=== PATIENT | female | born 1955 | race Caucasian/White ===

== ENCOUNTER 2018-01-20 11:28 | Emergency (ER) | payer BC, OTHER ==
[~2018-01-20] VITALS: Ht 160 cm; Wt 68.9 kg
[~2018-01-20 11:28] MED LIST: ALBUAER2 INH; ANAS1TAB59 PO; FEXO1TAB49 PO; FISH OIL GUMMY PO; FLUT0.0529 NAE; FLVHFA110 INH; PSEU30TA20 PO
[2018-01-20 11:37] VITALS: TEMP 36.4; Ht 160 cm; Wt 68.9 kg
[2018-01-20] MEDS ORDERED: OMEG10007 PO (11:59)
[2018-01-20] MEDS ORDERED: CYAN100020 PO (11:59)
[2018-01-20] MEDS ORDERED: CALC600T9 PO (11:59)
[2018-01-20] MEDS ORDERED: SODIUM CHLORIDE 0.9% 1000ML 1,000 ML IV STA (12:02)
[2018-01-20] MEDS ORDERED: KETOROLAC TROMETHAMINE 30 MG/ML VIAL ONE (12:37)
[2018-01-20 12:45] LABS: BASO % 0.4 %; BASO ABS # 0.03 K/uL (0-0.2); EOS % 0.8 %; EOS ABS # 0.06 K/uL (0-0.5); HEMATOCRIT 39.3 % (37-47); HEMOGLOBIN 12.9 g/dL (12.0-16.0); IG# 0.01 K/uL (0.00-0.02); LYMPH % 22.2 %; LYMPH ABS # 1.74 K/uL (1.2-3.4); MEAN CELL VOLUME 89.7 fL (80-100); MEAN CORPUSCULAR HEMOGLOBIN 29.5 pg (25-34); MEAN CORPUSCULAR HGB CONC 32.8 g/dl (32-36); MEAN PLATELET VOLUME 9.9 fL (7.4-10.4); MONO % 4.6 %; MONO ABS # 0.36 K/uL (0.11-0.59); NEUT % 71.9 %; NEUT ABS # 5.64 K/uL (1.4-6.5); PLATELET COUNT 314 K/uL (130-400); RED CELL DISTRIBUTION WIDTH CV 13.3 % (11.5-14.5); RED CELL DISTRIBUTION WIDTH SD 43.6 fL (36.4-46.3); WHITE BLOOD COUNT 7.84 K/uL (4.8-10.8)
[2018-01-20 13:05] LABS: CREATININE 0.75 mg/dl (0.60-1.20)
[2018-01-20 13:06] LABS: ALBUMIN 3.8 gm/dl (3.4-5.0); CALCIUM 9.5 mg/dl (8.5-10.1); TOTAL PROTEIN 7.6 gm/dl (6.4-8.2)
--- NOTE | 2018-01-20 13:20 | DIAGNOSTIC IMAGING REPORT ---
CT SCAN OF THE ABDOMEN AND PELVIS WITHOUT CONTRAST CLINICAL HISTORY: Left mid abdominal pain. History of some diarrhea. COMPARISON STUDY: No previous studies for comparison. TECHNIQUE: CT scan of the abdomen and pelvis was performed from the lung bases to the proximal femurs. Images are reviewed in the axial, sagittal, and coronal planes. IV contrast was not administered for this examination. A dose lowering technique was utilized adhering to the principles of ALARA. CT DOSE: 788.14 mGycm FINDINGS: Lower chest: The heart is normal in size and configuration, without pericardial effusion. The lung bases and pleural spaces are clear. Liver: The unenhanced liver is normal in size, contour, and attenuation. There is no intrahepatic biliary ductal dilatation. Gallbladder: Unremarkable. Spleen: Normal in size and attenuation. Pancreas: Unremarkable. Adrenal glands: Unremarkable. Kidneys: There is a punctate nonobstructing right renal calculus. There is mild left-sided hydronephrosis and hydroureter. There is a 3 mm distal left ureteral calculus. Bowel: There are no transition zones indicate bowel obstruction. There is no acute diverticulitis. There are no findings to indicate acute appendicitis. Peritoneum: There is no intraperitoneal free air or abdominal ascites. Vasculature: The abdominal aorta is normal in course and caliber. Adenopathy: None. Pelvic viscera: There is a calcified uterine fibroid. Skeletal structures: No destructive osseous lesions are seen. IMPRESSION: 1. Punctate nonobstructing right renal calculus 2. 3 mm distal left ureteral calculus with secondary mild obstructive changes 3. No evidence of bowel obstruction. No evidence of free air 4. No evidence of acute appendicitis. No evidence of acute diverticulitis Electronically signed by: Carlos Deleon M.D. 01/20/2018 1:18 PM Dictated Date/Time: 01/20/2018 1:13 PM
[2018-01-20 13:54] VITALS: BP 136/89; PULSE 70; O2SAT 100
[2018-01-20] MEDS ORDERED: OXYC-737 PO (13:57)
--- NOTE | 2018-01-20 17:21 | EMERGENCY ROOM VISIT NOTE ---
History Report prepared by Yelitza: Ana Cristina Kemp Under the Supervision of: Dr. Amando Gee D.O. First contact with patient: 11:48 Chief Complaint: ABDOMINAL PAIN Stated Complaint: LEFT LOWER QUADRANT PAIN Nursing Triage Summary: triage note; pt reports left lower abd pain since this am. pt reports some diarrhea. History of Present Illness The patient is a 62 year old female who presents to the Emergency Room with complaints of severe left abdominal pain beginning this morning. She rates her pain at a 3/10 currently but states that it was at a 6/7 out of 10 when she came to the ED. She reports that she was bent over in pain a half hour prior to arrival. The patient states that her pain began on her way to work. She states that she was able to go to the bathroom a little but reports that it did not alleviate her symptoms. She reports that her bowel movement today was loose and states that she is normally regular. The patient states that standing alleviates her pain and that bending over and sitting exacerbates her pain. She denies having any nausea, vomiting, or urinary symptoms. The patient states that she recently ate blueberries and that she normally does not eat them. She denies a history of diverticulitis, diverticulosis, or kidney stones. The patient also denies a history of an appendectomy or a cholecystectomy. Source of History: patient Onset: this morning Position: abdomen (left) Symptom Intensity: severe Quality: other (pain) Modifying Factors (Worsening): other (bending over, sitting ) Modifying Factors (Relieving): other (standing) Associated Symptoms: No nausea, No vomiting, No urinary symptoms Review of Systems See HPI for pertinent positives & negatives. A total of 10 systems reviewed and were otherwise negative. Past Medical & Surgical Medical Problems: (1) No active medical problems Family History Patient reports no known family medical history. Social History Smoking Status: Never Smoker Marital Status: Housing Status: lives with significant other Current/Historical Medications Scheduled Anastrozole (Arimidex), 1 MG PO DAILY Calcium Carbonate-Vitamin D (Calcium + D), 1 TAB PO DAILY Cyanocobalamin (Vitamin B12), 1,000 MCG PO DAILY Fish Oil ([place]-3), 1 CAP PO DAILY Scheduled PRN Oxycodone Immediate Rel Tab (Roxicodone Ir), 5 MG PO Q4H PRN for Severe Pain Allergies Coded Allergies: Iodine (Verified Allergy, Mild, Sneezing, 01/20/18) Povidone Iodine (Verified Allergy, Mild, Urticaria, 01/20/18) Physical Exam Vital Signs Date Time Temp Pulse Resp B/P (MAP) Pulse Ox O2 Delivery O2 Flow Rate FiO2 01/20/18 13:54 70 16 136/89 100 Room Air 01/20/18 11:37 36.4 75 18 166/83 99 Room Air Physical Exam GENERAL: Standing in the room, alert, well appearing, well nourished, no distress, non-toxic EYE EXAM: normal conjunctiva. OROPHARYNX: no exudate, no erythema, lips, buccal mucosa, and tongue normal and mucous membranes are moist NECK: supple, no nuchal rigidity, no adenopathy, non-tender LUNGS: Clear to auscultation. Normal chest wall mechanics HEART: no murmurs, S1 normal and S2 normal ABDOMEN: abdomen soft, tenderness to palpation in the left mid abdomen, normo- active bowel sounds, no masses, no rebound or guarding. BACK: Back is symmetrical on inspection and there is no deformity, no midline tenderness, no CVA tenderness. SKIN: no rashes and no bruising UPPER EXTREMITIES: upper extremities are grossly normal. LOWER EXTREMITIES: No pitting edema. NEURO EXAM: Normal sensorium, cranial nerves II-XII grossly intact, normal speech, no gross weakness of arms, no gross weakness of legs. Medical Decision & Procedures ER Provider Diagnostic Interpretation: Radiology results as stated below per my review and the radiologist's interpretation: CT SCAN OF THE ABDOMEN AND PELVIS WITHOUT CONTRAST CLINICAL HISTORY: Left mid abdominal pain. History of some diarrhea. COMPARISON STUDY: No previous studies for comparison. TECHNIQUE: CT scan of the abdomen and pelvis was performed from the lung bases to the proximal femurs. Images are reviewed in the axial, sagittal, and coronal planes. IV contrast was not administered for this examination. A dose lowering technique was utilized adhering to the principles of ALARA. CT DOSE: 788.14 mGycm FINDINGS: Lower chest: The heart is normal in size and configuration, without pericardial effusion. The lung bases and pleural spaces are clear. Liver: The unenhanced liver is normal in size, contour, and attenuation. There is no intrahepatic biliary ductal dilatation. Gallbladder: Unremarkable. Spleen: Normal in size and attenuation. Pancreas: Unremarkable. Adrenal glands: Unremarkable. Kidneys: There is a punctate nonobstructing right renal calculus. There is mild left-sided hydronephrosis and hydroureter. There is a 3 mm distal left ureteral calculus. Bowel: There are no transition zones indicate bowel obstruction. There is no acute diverticulitis. There are no findings to indicate acute appendicitis. Peritoneum: There is no intraperitoneal free air or abdominal ascites. Vasculature: The abdominal aorta is normal in course and caliber. Adenopathy: None. Pelvic viscera: There is a calcified uterine fibroid. Skeletal structures: No destructive osseous lesions are seen. IMPRESSION: 1. Punctate nonobstructing right renal calculus 2. 3 mm distal left ureteral calculus with secondary mild obstructive changes 3. No evidence of bowel obstruction. No evidence of free air 4. No evidence of acute appendicitis. No evidence of acute diverticulitis Electronically signed by: Carlos Deleon M.D. 01/20/2018 1:18 PM Dictated Date/Time: 01/20/2018 1:13 PM Laboratory Results 01/20/18 12:35 Red Blood Count 4.38, Mean Corpuscular Volume 89.7, Mean Corpuscular Hemoglobin 29.5, Mean Corpuscular Hemoglobin Concent 32.8, Mean Platelet Volume 9.9, Neutrophils (%) (Auto) 71.9, Lymphocytes (%) (Auto) 22.2, Monocytes (%) (Auto) 4.6, Eosinophils (%) (Auto) 0.8, Basophils (%) (Auto) 0.4, Neutrophils # (Auto) 5.64, Lymphocytes # (Auto) 1.74, Monocytes # (Auto) 0.36, Eosinophils # (Auto) 0.06, Basophils # (Auto) 0.03 01/20/18 12:35 Test 01/20/18 12:05 01/20/18 12:35 Urine Color YELLOW Urine Appearance TURBID (CLEAR) Urine pH >= 9.0 (4.5-7.5) Urine Specific [place] 1.018 (1.000-1.030) Urine Protein NEG (NEG) Urine Glucose (UA) NEG (NEG) Urine Ketones NEG (NEG) Urine Occult Blood 3+ (NEG) Urine Nitrite NEG (NEG) Urine Bilirubin NEG (NEG) Urine Urobilinogen NEG (NEG) Urine Leukocyte Esterase NEG (NEG) Urine WBC (Auto) 1-5 /hpf (0-5) Urine RBC (Auto) >30 /hpf (0-4) Urine Hyaline Casts (Auto) 0 /lpf (0-5) Urine Epithelial Cells (Auto) 5-10 /lpf (0-5) Urine Bacteria (Auto) NEG (NEG) Urine Test NEG (NEG) White Blood Count 7.84 K/uL (4.8-10.8) Red Blood Count 4.38 M/uL (4.2-5.4) Hemoglobin 12.9 g/dL (12.0-16.0) Hematocrit 39.3 % (37-47) Mean Corpuscular Volume 89.7 fL (80-100) Mean Corpuscular Hemoglobin 29.5 pg (25-34) Mean Corpuscular Hemoglobin Concent 32.8 g/dl (32-36) Platelet Count 314 K/uL (130-400) Mean Platelet Volume 9.9 fL (7.4-10.4) Neutrophils (%) (Auto) 71.9 % Lymphocytes (%) (Auto) 22.2 % Monocytes (%) (Auto) 4.6 % Eosinophils (%) (Auto) 0.8 % Basophils (%) (Auto) 0.4 % Neutrophils # (Auto) 5.64 K/uL (1.4-6.5) Lymphocytes # (Auto) 1.74 K/uL (1.2-3.4) Monocytes # (Auto) 0.36 K/uL (0.11-0.59) Eosinophils # (Auto) 0.06 K/uL (0-0.5) Basophils # (Auto) 0.03 K/uL (0-0.2) RDW Standard Deviation 43.6 fL (36.4-46.3) RDW Coefficient of Variation 13.3 % (11.5-14.5) Immature Granulocyte % (Auto) 0.1 % Immature Granulocyte # (Auto) 0.01 K/uL (0.00-0.02) Anion Gap 6.0 mmol/L (3-11) Est Creatinine Clear Calc Drug Dose 74.3 ml/min Estimated GFR () 100.4 Estimated GFR (Non- 86.6 BUN/Creatinine Ratio 25.0 (10-20) Calcium Level 9.5 mg/dl (8.5-10.1) Total Bilirubin 0.4 mg/dl (0.2-1) Direct Bilirubin 0.1 mg/dl (0-0.2) Aspartate Amino Transf (AST/SGOT) 23 U/L (15-37) Alanine Aminotransferase (ALT/SGPT) 28 U/L (12-78) Alkaline Phosphatase 60 U/L (45-117) Total Protein 7.6 gm/dl (6.4-8.2) Albumin 3.8 gm/dl (3.4-5.0) Lipase 105 U/L (73-393) Laboratory results per my review. Medications Administered Medications (Trade) Dose Ordered Sig/Mehdi Route Start Time Stop Time Status Last Admin Dose Admin Sodium Chloride 1,000 ml @ 999 mls/hr Q1H1M STAT IV 01/20/18 12:02 01/20/18 13:02 DC 01/20/18 12:02 999 MLS/HR Ketorolac Tromethamine (Toradol Inj) 30 mg STK-MED ONCE .ROUTE 01/20/18 12:37 01/20/18 12:38 DC 01/20/18 12:37 30 MG ED Course ED COURSE: Vital signs were reviewed and showed hypertension. The patients medical record was reviewed The above diagnostic studies were performed and reviewed. ED treatments and interventions as stated above. 1156: The patient was evaluated in room B12B. A complete history and physical examination was performed. 1202: Ordered Sodium Chloride 1000 ml @ 999 mls/hr IV. 1208: I updated the patient. 1237: Ordered Toradol Inj 30 mg IV. 1350: Upon reevaluation, the patient is feeling better. I discussed the findings and the treatment plan with the patient. She verbalizes agreement and understanding. She was discharged home. Medical Decision Differential diagnoses includes but is not limited to gastritis, peptic ulcer disease, GERD, gallbladder disease, pancreatitis, small bowel obstruction, acute coronary syndrome, pericarditis, ischemic bowel, irritable bowel disease, irritable bowel syndrome, appendicitis, diverticulitis, malignancy, hernia, urinary tract infection, torsion, [/ectopic (if female)], perforation, trauma, infectious. Patient is a 62-year-old female who presents the ER for left lower quadrant abdominal pain which is been present for the past 24 hours. Sitting up makes the pain better. Sitting makes it significantly worse. CBC along with BMP, LFTs, bilirubin lipase is unremarkable. UA without infection. was negative. UA did have hematuria. CT shows 3 mm left distal ureteral stone. Mild hydro-. Patient was given Toradol. Pain was controlled. She is updated at bedside. Discharge follow-up with PCP as an outpatient. PDMP reviewed. Discussed with Pt concerning signs and symptoms to watch out for. Pt was instructed to follow up with their PCP and discussed with the patient their option to return to the ED at anytime for persistent or worsening symptoms. The appropriate anticipatory guidance and out-patient management, including indications for return to the emergency department, were explained at length to the patient and understood. [place] Drug Monitoring Program Search Results: patient reviewed within database, no issues identified Medication Reconcilliation Current Medication List: was personally reviewed by me Blood Pressure Screening Patient's blood pressure: Elevated blood pressure Blood pressure disposition: Elevated BP felt to be situational Impression Primary Impression: Renal colic Scribe Attestation The scribe's documentation has been prepared under my direction and personally reviewed by me in its entirety. I confirm that the note above accurately reflects all work, treatment, procedures, and medical decision making performed by me. Departure Information Dispostion Home / Self-Care Prescriptions Oxycodone Immediate Rel Tab (ROXICODONE IR) 5 Mg Tab 5 MG PO Q4H Y for Severe Pain, #15 TAB Prov: Amando Gee, 01/20/18 Referrals Sharmaine Barragan D.O. (PCP) Stan Duong M.D. Forms Call Back Authorization, HOME CARE DOCUMENTATION FORM, IMPORTANT VISIT INFORMATION Patient Instructions ED Stone Renal W Colic, My [facility] Additional Instructions Please follow up with your primary care doctor with in the next 24 hours. Any worsening of your symptoms, please return to the ED immediately. This includes any fevers greater than 100.4, worsening pain, chest pain, shortness breath, persistent nausea, vomiting, unable to eat or drink, or any other concerning signs or symptoms from your standpoint. You were given medications during this visit that will inhibit your ability to drive, operate machinery and work. Please do NOT drive, operate machinery or work for the next 12hrs. You were also given a prescription for a narcotic. While taking this medication you should also not drive, operate machinery and or work. She can take Motrin 200-400 mg 3 times a day. Please make sure that you follow-up with your PCP and urology as listed below.
--- NOTE | 2018-01-20 18:54 | Pharmacy Progress Note ---
ED Pharmacist Progress Note Date of Service: Jan 20, 2018. Patient called stating she did not get an Rx for Flomax however she was expecting to receive one. Spoke w/ Dr Gee and he gave auth to call in Rx for Flomax 0.4mg PO daily x 10 days, no refills to pharmacy of patient's choice. Pt requested Rx be called to [facility] [phone], which I did do for her.
== END 2018-01-20 14:17 | disposition home or self-care (01) ==
LOC: C.EDB 11:29
DX: N13.2 Hydronephrosis with renal and ureteral calculous obstruction (principal); Z79.899 Other long term (current) drug therapy; Z88.8 Allergy status to other drugs, medicaments and biological substances

== ENCOUNTER 2018-01-20 20:55 | Emergency (ER) | payer OTHER ==
[~2018-01-20] VITALS: Ht 160 cm; Wt 69.1 kg
[~2018-01-20 20:55] MED LIST changes: +CALC600T9 PO; +CYAN100020 PO; +OMEG10007 PO; +OXYC-737 PO
[2018-01-20 21:02] VITALS: TEMP 36.3; Ht 160 cm; Wt 69.1 kg
[2018-01-20] MEDS ORDERED: KETOROLAC TROMETHAMINE 30 MG/ML VIAL IV STA (21:34)
[2018-01-20] MEDS ORDERED: ONDANSETRON INJ 2 MG/ML 2 ML VIAL IV STA (21:34)
[2018-01-20] MEDS ORDERED: SODIUM CHLORIDE 0.9% 1000ML 1,000 ML IV STA ×2 (21:34)
[2018-01-20] MEDS ORDERED: HYDROmorphone INJ 0.5 MG/0.5 ML SYR IV PRN (21:45)
--- NOTE | 2018-01-20 23:37 | EMERGENCY ROOM VISIT NOTE ---
History Report prepared by Yelitza: Rex Nolasco Under the Supervision of: Dr. Lowell Warren M.D. First contact with patient: 21:11 Chief Complaint: KIDNEY STONE Stated Complaint: PAIN (KIDNEY STONE),NAUSEA,VOMITING History of Present Illness The patient is a 62 year old female who presents to the Emergency Room with complaints of waxing/waning left flank pain that began at 1800. She rates her pain as an 6/10 in severity. The patient states that she developed left flank pain today that caused her to come to the ED this morning. Per the patient's CT report she was found to have a 3 mm distal left ureteral calculus. Her lab work was found to be normal and she was discharged with an Oxycodone prescription. The patient states that when she was discharged her pain was not as severe. She states that around 1800 she started to experience a 10/10 in severity pain in her left flank. 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 She reports that after she picked up her medication, she began to vomit. The patient states that she has not been able to keep her medication down. The patient denies LOC, headache, fevers, chills, diaphoresis, visual changes, neck pain, chest pain, breathing difficulties, abdominal pain, back pain, melena, hematochezia, urinary symptoms, weakness, lymphadenopathy, rash, or other complaints. She notes she did have numbness in her left arm down into her left leg over the weekend. The patient states these symptoms are resolved. Source of History: patient Onset: 1800 Position: other (left flank) Symptom Intensity: 6/10 Timing: waxes/wanes Modifying Factors (Relieving): other (Oxycodone, Aspirin) Associated Symptoms: + nausea, + vomiting, + numbness (resolved) Review of Systems See HPI for pertinent positives and negatives. A total of ten systems were reviewed and were otherwise negative. Past Medical & Surgical Medical Problems: (1) Breast cancer (2) Kidney stones (3) No active medical problems Family History Patient reports no known family medical history. Social History Smoking Status: Never Smoker Marital Status: Housing Status: lives with significant other Occupation Status: employed Current/Historical Medications Scheduled Anastrozole (Arimidex), 1 MG PO DAILY Calcium Carbonate-Vitamin D (Calcium + D), 1 TAB PO DAILY Cyanocobalamin (Vitamin B12), 1,000 MCG PO DAILY Fish Oil ([place]-3), 1 CAP PO DAILY Scheduled PRN Oxycodone Immediate Rel Tab (Roxicodone Ir), 5 MG PO Q4H PRN for Severe Pain Allergies Coded Allergies: Iodine (Verified Allergy, Mild, Sneezing, 01/20/18) Povidone Iodine (Verified Allergy, Mild, Urticaria, 01/20/18) Physical Exam Vital Signs Date Time Temp Pulse Resp B/P (MAP) Pulse Ox O2 Delivery O2 Flow Rate FiO2 01/20/18 23:50 96 18 119/64 98 Room Air 01/20/18 22:41 75 18 109/57 99 Nasal Cannula 2.0 01/20/18 21:47 75 18 127/67 95 Room Air 01/20/18 21:02 36.3 76 20 153/81 98 Room Air Physical Exam GENERAL: Awake, alert, well-appearing, in mild distress HENT: Normocephalic, atraumatic. Oropharynx unremarkable. EYES: Normal conjunctiva. Sclera non-icteric. NECK: Supple. No nuchal rigidity. FROM. No masses. RESPIRATORY: Clear to auscultation. No wheezes. No rales. Normal respiratory effort. CARDIAC: Normal rate. Normal rhythm. No murmurs. No rubs. Extremities warm and well perfused. Pulses equal. No JVD. GI: Soft, non-distended. No tenderness to palpation. No rebound or guarding. No masses. RECTAL: Deferred. MUSCULOSKELETAL: Atraumatic. Chest examination reveals no tenderness. The back is symmetrical on inspection without obvious abnormality. There is left CVA tenderness to palpation. No joint edema. LOWER EXTREMITIES: Calves are equal size bilaterally and non-tender. No edema. No discoloration. NEURO: Normal sensorium. No sensory or motor deficits noted. SKIN: No rash or jaundice noted. Medical Decision & Procedures Medications Administered Medications (Trade) Dose Ordered Sig/Mehdi Route Start Time Stop Time Status Last Admin Dose Admin Sodium Chloride 1,000 ml @ 999 mls/hr Q1H1M STAT IV 01/20/18 21:34 01/20/18 22:34 DC 01/20/18 21:40 999 MLS/HR Ondansetron HCl (Zofran Inj) 4 mg NOW STAT IV 01/20/18 21:34 01/20/18 21:37 DC 01/20/18 21:43 4 MG Ketorolac Tromethamine (Toradol Inj) 10 mg NOW STAT IV 01/20/18 21:34 01/20/18 21:37 DC 01/20/18 21:45 10 MG Hydromorphone HCl (Dilaudid Inj) 0.5 mg Q15M PRN IV 01/20/18 21:45 01/21/18 00:14 DC 01/20/18 21:46 0.5 MG ED Course 8: The patient was evaluated in room C04. A complete history and physical exam was performed. 2133: Ordered Toradol Injection 10 mg IV, Zofran Injection 4 mg IV, Sodium Chloride 1000 ml @ 999 mls/hr IV, Sodium Chloride 1000 ml @ 125 mls/hr IV. 2144: Ordered Dilaudid Injection 0.5 mg IV. 2308: I reevaluated the patient and she feels a lot better. She will be getting an oral challenge. 8: I reevaluated the patient. Discussed results and discharge instructions: She verbalized understanding and agreement. The patient is ready for discharge. Medical Decision Prior records/ancillary studies reviewed. Triage Nursing notes reviewed and agree them. Additional history obtained from the family. The patient's history was concerning for flank and abdominal pain with recent diagnosis of kidney stone Differential diagnosis: Etiologies such as renal colic, appendicitis, diverticulitis, mesenteric ischemia, aortic pathology, infections, inflammatory bowel disease, PUD, biliary pathology, UTI, as well as others were entertained. Physical examination findings: As above. ER treatment provided: IV Toradol IV normal saline IV Zofran IV Dilaudid On reassessment the patient felt much better. Diagnostic interpretation by me: Deferred It appears that the patient has isolated renal colic from a left sided stone. Unfortunately she had nausea and vomiting that increased before her medications could take hold. She is doing much better at this point time and feels comfortable with discharge. By the evaluation outlined above emergent etiologies such as appendicitis, diverticulitis, mesenteric ischemia, aortic pathology, infections, inflammatory bowel disease, PUD, biliary pathology, UTI, as well as others were deemed relatively unlikely. The patient and were informed about the findings as listed above. All questions were answered and they were pleased with the treatment. Return instructions were outlined and the patient was discharged in stable condition. Outpatient prescription management: Oxy IR 5mg 1-2 po Q4 hrs prn Zofran ODT 4 mg every 4 hours as needed for nausea Continue Flomax as prescribed Referral: The patient was referred back to her primary care physician for follow-up in 1- 2 days for a recheck of the current condition. Medication Reconcilliation Current Medication List: was personally reviewed by me Blood Pressure Screening Patient's blood pressure: Elevated blood pressure Blood pressure disposition: Elevated BP felt to be situational Impression Primary Impression: Ureterolithiasis Additional Impressions: Vomiting Flank pain Scribe Attestation The scribe's documentation has been prepared under my direction and personally reviewed by me in its entirety. I confirm that the note above accurately reflects all work, treatment, procedures, and medical decision making performed by me. Departure Information Dispostion Home / Self-Care Referrals No Doctor, Assigned (PCP) Sharmaine BarraganD.O. Forms HOME CARE DOCUMENTATION FORM, IMPORTANT VISIT INFORMATION Patient Instructions My [facility] Additional Instructions KIDNEY STONE INSTRUCTIONS: Oxycodone Immediate Release (OxyIR) 5mg: Take 1-2 pills every four hours for pain. Avoid alcohol, operating machinery or dangerous equipment, working on ladders or roofs, DRIVING, or situations where being under the influence may be dangerous. It is recommended to use an [id number] stool softener such as Colace, 100mg twice daily while taking this medication to avoid constipation. Zofran 4 mg oral dissolving tablets: take one tablet and allow it to melt in your mouth every 4 hours as needed for nausea. Continue your Flomax. Ibuprofen(Motrin, Advil) may be used for fever or pain. Use 600mg every six hours as needed. Take with food. Avoid using more than 2400mg in a 24 hour period. Do not use 2400mg per day for more than three consecutive days without physician direction. Prolonged inappropriate use can lead to stomach upset or ulcers. This medication can be taken if you need to drive, work, or perform activities which may be dangerous when taking narcotic pain medication. (AND/OR) Acetaminophen(Tylenol) may be used for fever or pain. Use 1000mg every six hours as needed. Avoid using more than 4000mg in a 24 hour period. This medication can be taken if you need to drive, work, or perform activities which may be dangerous when taking narcotic pain medication. Strain your urine and collect the stone for your primary doctor. Rest and avoid strenuous activity until your stone passes and symptoms resolve. Drink plenty of fluids. Return to the ER for worsening abdominal or back pain, vomiting, fevers, passing out, or as needed. Follow-up with your primary office tomorrow. Problem Qualifiers
[2018-01-20 23:50] VITALS: BP 119/64; PULSE 96; O2SAT 98
== END 2018-01-21 00:10 | disposition home or self-care (01) ==
LOC: C.EDB 20:56 → C.EDC 01-21 00:10
DX: N20.1 Calculus of ureter (principal); R11.2 Nausea with vomiting, unspecified; R20.0 Anesthesia of skin; Z79.899 Other long term (current) drug therapy; Z88.8 Allergy status to other drugs, medicaments and biological substances; Z87.442 Personal history of urinary calculi